=== PATIENT | male | born 1980 | race Caucasian/White ===

== ENCOUNTER 2017-04-24 20:07 | Emergency (ER) | payer SELFPAY | END 2017-04-24 22:54 | disposition left against medical advice (07) | LOC: ERS 20:07 | DX: Z53.21 Procedure and treatment not carried out due to patient leaving prior to being seen by health care provider (principal) ==

== ENCOUNTER 2019-10-09 11:14 | Emergency (ER) | payer OTHER, SELFPAY | END 2019-10-09 11:49 | disposition home or self-care (01) | LOC: ERS 11:14 | DX: J06.9 Acute upper respiratory infection, unspecified (principal); J45.909 Unspecified asthma, uncomplicated; F32.9 Major depressive disorder, single episode, unspecified; F17.200 Nicotine dependence, unspecified, uncomplicated | CPT/HCPCS: 99283 ==